=== PATIENT | male | born 1955 | race Caucasian/White ===

== ENCOUNTER 2024-10-18 10:08 | Outpatient (CLI) | payer MEDICARE, OTHER ==
[~2024-10-18] VITALS: Ht 182.9 cm; Wt 124.7 kg
[2024-10-18] MEDS: albuterol 2.5 MG/3 ML nebule NEB ONE (10:48)
[2024-10-18 10:50] VITALS: PULSE 74; RESP 18; O2SAT 93
[2024-10-18 11:02] VITALS: PULSE 71; RESP 16
== END 2024-10-18 23:59 | disposition home or self-care (01) ==
LOC: RT 10:08
PROVIDERS: ATTEND Nurse Practitioner Family
DX: R06.02 Shortness of breath (principal)
CPT/HCPCS: 94060; 94760